=== PATIENT | male | born 1965 | race Caucasian/White ===

== ENCOUNTER 2018-09-01 15:02 | Inpatient (IN) | payer OTHER ==
[~2018-09-01] VITALS: Ht 185.4 cm; Wt 85.7 kg
--- NOTE | 2018-09-01 15:04 | NUR ---
PT BIBA ALS TO BED 4
[2018-09-01 15:05] VITALS: BP 112/69
--- NOTE | 2018-09-01 15:11 | NUR ---
Patient being evaluated by physician at bedside.
--- NOTE | 2018-09-01 15:15 | NUR ---
XRAY AT BEDSIDE
--- NOTE | 2018-09-01 15:23 | NUR ---
PT DENIES SOB,DENIES VOMITING/NAUSEA. BS FIELD 331,EKG FIELD RT. BUNDLE,ASA 324 MG.PO GIVEN FIELD, NTG X2 GIVEN FIELD. CHEST PAIN NON RADIATING, NON PROVOKED.PATIENT IN [facility] DURING THE EPISODE. HX: 4 STENTS,HEART ATTACK,HTN,DM,LEFT BKA, RT. TOE AMPUTATION,RT. EYE BLIND. PATIENT STATES PAIN OF 8/10 AT THIS TIME; VSS; PATIENT POSITIONED FOR COMFORT; HOB ELEVATED; BEDRAILS UP X2; BED DOWN. ER MD MADE AWARE OF PT STATUS.
[2018-09-01 15:37] LABS: BASOPHILS % (AUTO) 0.3 % (0.0-2.0); EOSINOPHILS % (AUTO) 0.1 % (0.0-4.0); HEMATOCRIT 31.1 % (36-52); HEMOGLOBIN 9.8 g/dL (12.0-18.0); LYMPHOCYTES # (AUTO) 1.3 K/uL (2.0-11.5); LYMPHOCYTES % (AUTO) 13.1 % (20.5-51.1); MEAN CORPUSCULAR HEMOGLOBIN 24 pg (27-31); MEAN CORPUSCULAR HGB CONC 32 g/dL (33-37); MEAN CORPUSCULAR VOLUME 75.1 fL (80-94); MONOCYTES % (AUTO) 9.9 % (1.7-9.3); NEUTROPHILS # (AUTO) 7.6 K/uL (1.8-7.7); NEUTROPHILS % (AUTO) 76.6 % (42.2-75.2); PLATELET COUNT (AUTO) 270 K/uL (140-450); RED BLOOD CELL COUNT(AUTO) 4.14 MIL/uL (4.20-6.10); RED CELL DISTRIBUTION WIDTH 20.7 % (11.6-13.7); WHITE BLOOD COUNT (AUTO) 9.9 K/uL (4.8-10.8)
[2018-09-01 15:49] LABS: ANION GAP 6.7 (8-16); CARBON DIOXIDE 28.9 mmol/L (21-32); POTASSIUM 3.6 mmol/L (3.5-5.1)
[2018-09-01 15:55] LABS: ALBUMIN 2.8 g/dL (3.4-5.0); TOTAL BILIRUBIN 0.5 mg/dL (0.0-1.0)
[2018-09-01 15:57] LABS: PROTHROMBIN TIME 12.4 secs (10.8-13.4)
[2018-09-01] MEDS ORDERED: HYDROcodone/APAP 5/325 MG 1 TAB TAB PO PRN ×2 (16:55)
[2018-09-01] MEDS ORDERED: ONDANSETRON 4 MG/2 ML VIAL IVP PRN (16:55)
[2018-09-01] MEDS ORDERED: ACETAMINOPHEN 325 MG TAB PO PRN (16:55)
--- NOTE | 2018-09-01 17:25 | NUR ---
ENDORSED PT. TO CIGARETTE AND FILTER CHIEF INSPECTOR FOR CONTINUITY OF CARE. PATIENT IN STABLE CONDITION. ALL NEEDS MET AT THIS TIME.
--- NOTE | 2018-09-01 17:31 | NUR ---
PT TAKEN TO FLOOR BY SHAE SHELLEY AND EMT GISELA
--- NOTE | 2018-09-01 17:40 | NUR ---
Patient will be admitted to care of DR. ALMANZA. Admited to TELE. Will go to room 111A. Belongings list completed. Report to SHAE THORNTON.
--- NOTE | 2018-09-01 17:45 | NUR ---
53 y/o ,Male Admitted from ED with chief complaint of CHEST PAIN. PT IS AAOX3 TO PERSON, PLACE, AND DAY. Cooperative AND VERBALIZES PAST MEDICAL HX. PT STATES CHEST PAIN OF 8/10 AND IS PRESENT AND NOTIFIED. PT. HAS LEFT BUTTOCK SORE [id number]. BELONGINGS OF PT INCLUDE WHEELCHAIR, CLOTHES, MONEY LEFT ON HIS PERSON. PT oriented to call light, bed, phone,television, bathroom, smoking policy, visiting hours, procedures, ID bracelet on. Belongings list checked. PT VERBALIZED UNDERSTANDING.
[2018-09-01 17:47] VITALS: BP 114/58
--- NOTE | 2018-09-01 17:50 | NUR ---
MRSA NARES SWABS COLLECTED AND SENT TO LAB.
--- NOTE | 2018-09-01 18:00 | NUR ---
PT GIVEN HOMELESS PACKET WAIVER AND INFO PACKET. HE SIGNED AND VERBALIZED UNDERSTANDING.
[2018-09-01] MEDS ORDERED: NITROGLYCERIN 2% 1 GM PKT TP SCH (18:10)
[2018-09-01] MEDS ORDERED: CLOPIDOGREL 75 MG TAB PO SCH (18:17)
[2018-09-01] MEDS ORDERED: amLODIPine 5 MG TAB PO SCH (18:18)
--- NOTE | 2018-09-01 18:30 | NUR ---
ECHO CARDIOGRAM ON GOING AT THE BEDSIDE.
--- NOTE | 2018-09-01 19:48 | NUR ---
NOTIFIED CHARGE NURSE SHAE TALAMANTES ON PATIENT STATING THAT HE HAS SUICIDAL IDEATION DUE TO PERSONAL ISSUES.
--- NOTE | 2018-09-01 19:48 | NUR ---
RECEIVED REPORT FROM DAY SHIFT NURSE ADRIAN-RN AT BEDSIDE. PT SLEEPING IN BED, ACCORDING TO DAY SHIFT NURSE PT IS AOX3, RIGHT SIDED WEAKNESS, WITH IV SITE ON LEFT WRIST #[id number]. LEFT BKA AND RIGHT TOES AMPUTATED NOTED. LEFT BUTTOCK SORE [id number] NOTED, SENIOR DATA WAREHOUSE DEVELOPER. NO S/S OF RESPIRATORY DISTRESS OR DISCOMFORT NOTED AT THIS TIME. BED IN LOWEST POSITION, BED BREAKS ON, BOTH SIDE RAILS UP, BED ALARM ON. BEDSIDE TABLE AND CALL LIGHT ARE WITHIN REACH. WILL CONTINUE TO MONITOR.
[2018-09-01 20:00] VITALS: BP 114/63
--- NOTE | 2018-09-01 20:00 | NUR ---
VITAL SIGNS TAKEN AND TOLERATED WELL. NO S/S OF RESPIRATORY DISTRESS OR DISCOMFORT NOTED AT THIS TIME. WILL CONTINUE TO MONITOR.
--- NOTE | 2018-09-01 20:50 | NUR ---
NEFTALI MALHOTRA RTAcostaCAME TO ME AND REPORTED THAT WHEN HE DID ECHO ON PT HE TALKED ABOUT HAVING SUICIDAL IDEATION.INFORMED MELISSA KAUFMAN PT'S NURSE.THEN CAME AND I INFORMED HIM ABOUT PT'S SUICIDAL IDEATION ALSO.
--- NOTE | 2018-09-01 20:51 | NUR ---
SCHEDULED MEDICATION GIVEN AND TOLERATED WELL. NO S/S OF RESPIRATORY DISTRESS OR DISCOMFORT NOTED AT THIS TIME. WILL CONTINUE TO MONITOR.
[2018-09-01] MEDS ORDERED: LOVENOX 1MG/KG Q12H SUBQ SCH (21:00)
[2018-09-01] MEDS ORDERED: ENOXAPARIN 80 MG/0.8 ML SYR SUBQ SCH (21:00)
[2018-09-01] MEDS ORDERED: DEXTROSE 50% 50 ML SYR IVP PRN (22:40)
[2018-09-01] MEDS ORDERED: INSULIN LISPRO SLIDING SCALE 100 UNITS/ML VIAL SUBQ PRN (22:40)
--- NOTE | 2018-09-01 22:50 | NUR ---
SPOKE WITH DR. ALMANZA PT HX: DM TYPE 2 - ORDERED ACCUCHECKS, INSULIN SLIDING SCALE, PSYCH AND SECURITY ALARM INSTALLER CONSULTS. BLOOD GLUCOSE 206- ONE DOSE OF 4UNITS ORDERED AND WILL BE GIVEN.
[2018-09-01] MEDS ORDERED: INSULIN LISPRO 100 UNITS/ML VIAL SUBQ SCH (23:00)
--- NOTE | 2018-09-01 23:01 | NUR ---
BLOOD GLUCOSE 206- INSULIN COVERAGE GIVEN AND TOLERATED WELL. NO S/S OF RESPIRATORY DISTRESS OR DISCOMFORT NOTED AT THIS TIME. WILL CONTINUE TO MONITOR.
[2018-09-02] VITALS: BP 121/63
--- NOTE | 2018-09-02 | NUR ---
VITAL SIGNS TAKEN AND TOLERATED WELL. NO S/S OF RESPIRATORY DISTRESS OR DISCOMFORT NOTED AT THIS TIME. WILL CONTINUE TO MONITOR.
[2018-09-02] MEDS: NITROGLYCERIN 2% 1 GM PKT TP SCH ×2 (00:12→05:25)
--- NOTE | 2018-09-02 00:12 | NUR ---
SCHEDULED MEDICATION GIVEN AND TOLERATED WELL. NO S/S OF RESPIRATORY DISTRESS OR DISCOMFORT NOTED AT THIS TIME. WILL CONTINUE TO MONITOR.
[2018-09-02] MEDS ORDERED: INFLUENZA VIRUS VACCINE QUAD 0.5 ML SYR IMVAC PRN (01:55)
--- NOTE | 2018-09-02 02:00 | NUR ---
PT CONTINUES TO SLEEP IN BED. NO S/S OF RESPIRATORY DISTRESS OR DISCOMFORT NOTED AT THIS TIME. WILL CONTINUE TO MONITOR.
[2018-09-02 04:00] VITALS: BP 118/72
--- NOTE | 2018-09-02 04:00 | NUR ---
VITAL SIGNS TAKEN AND TOLERATED WELL. NO S/S OF RESPIRATORY DISTRESS OR DISCOMFORT NOTED AT THIS TIME. WILL CONTINUE TO MONITOR.
--- NOTE | 2018-09-02 05:25 | NUR ---
SCHEDULED MEDICATION GIVEN AND TOLERATED WELL. NO S/S OF RESPIRATORY DISTRESS OR DISCOMFORT NOTED AT THIS TIME. WILL CONTINUE TO MONITOR.
[2018-09-02 06:51] LABS: ANION GAP 9.4 (8-16); CREATININE 0.7 mg/dL (0.7-1.3); POTASSIUM 3.4 mmol/L (3.5-5.1)
--- NOTE | 2018-09-02 07:29 | NUR ---
ENDORSED PT CARE TO DAY SHIFT NURSE BENOIT FOR CONTINUITY OF CARE.
[2018-09-02] MEDS ORDERED: BLOOD GLUCOSE MONITORING 1 DEV DEV FS SCH ×2 (07:30)
[2018-09-02 07:33] LABS: BASOPHILS % (AUTO) 0.4 % (0.0-2.0); EOSINOPHILS % (AUTO) 0.1 % (0.0-4.0); HEMATOCRIT 30.4 % (36-52); HEMOGLOBIN 9.7 g/dL (12.0-18.0); LYMPHOCYTES # (AUTO) 1.7 K/uL (2.0-11.5); LYMPHOCYTES % (AUTO) 19.5 % (20.5-51.1); MEAN CORPUSCULAR HEMOGLOBIN 24 pg (27-31); MEAN CORPUSCULAR HGB CONC 32 g/dL (33-37); MEAN CORPUSCULAR VOLUME 74.8 fL (80-94); MONOCYTES # (AUTO) 0.8 K/uL (0.8-1.0); MONOCYTES % (AUTO) 8.9 % (1.7-9.3); NEUTROPHILS # (AUTO) 6.3 K/uL (1.8-7.7); NEUTROPHILS % (AUTO) 71.1 % (42.2-75.2); PLATELET COUNT (AUTO) 252 K/uL (140-450); RED BLOOD CELL COUNT(AUTO) 4.06 MIL/uL (4.20-6.10); RED CELL DISTRIBUTION WIDTH 21.3 % (11.6-13.7); WHITE BLOOD COUNT (AUTO) 8.8 K/uL (4.8-10.8)
--- NOTE | 2018-09-02 07:34 | NUR ---
RECEIVED REPORT FORM PRICING MANAGER. PATIENT WAS ASLEEP. RESPIRATIONS EVEN AND UNLABORED ON ROOM AIR. SKIN DRY AND WARM. IV PATENT AND INTACT. NO SIGNS OF PAIN. BED AT LOW POSITION, SIDE RAILS UP. CALL LIGHT WITHIN REACH.
[2018-09-02 07:55] LABS: ALBUMIN 2.5 g/dL (3.4-5.0); ANION GAP 9.7 (8-16); CARBON DIOXIDE 27.7 mmol/L (21-32); CREATININE 0.7 mg/dL (0.7-1.3); POTASSIUM 3.4 mmol/L (3.5-5.1); TOTAL BILIRUBIN 0.4 mg/dL (0.0-1.0)
[2018-09-02 08:00] VITALS: BP 98/65
--- NOTE | 2018-09-02 08:38 | NUR ---
PATIENT HAS BEEN SCREENED AND CATEGORIZED HIGH NUTRITION RISK. PATIENT WILL BE SEEN WITHIN 1-2 DAYS OF ADMISSION. 09/02/18-09/03/[address]
[2018-09-02] MEDS ORDERED: ENOXAPARIN 30 MG/0.3 ML SYR SUBQ SCH (09:00)
[2018-09-02] MEDS ORDERED: CLOPIDOGREL 75 MG TAB PO SCH (09:00)
[2018-09-02] MEDS ORDERED: ASPIRIN 81 MG TAB.CHEW PO SCH (09:00)
--- NOTE | 2018-09-02 09:12 | NUR ---
WOUND CARE EVALUATION NOTE: REASON FOR EVALUATION: LEFT BUTTOCK WOUND SKIN ASSESSMENT DONE WITH THIS 53 Y/O MALE PT ADMITTED TO [facility] WITH INITIAL DX CHEST PAIN. PAST MEDICAL HX INCLUDES HTN, DM AND NEUROPATHY. ALL ABOVE INFORMATION OBTAINED FROM ADMISSION H&P. LABS ARE WBC 8.8, H/H 9.7/30.4, GLUCOSE 125 AND ALBUMIN 2.8. PT IS AWAKE. SKIN IS WARM AND DRY, BLE HAIR GROWTH, NO EDEMA. HX OF LEFT BKA AND RIGHT FOOT ALL TOES AMPUTATION. PT. ABLE TO TURN AND REPOSITION BY HIMSELF, PT STATE THAT HE HASN'T HAS CHANCE TO WOMEN SPECIALIST A W/C CUSHION THAT IS WHY THE LEFT BUTTOCK GOT OPEN. PT. IS CONTINENT OF BOWEL AND BLADDER. PLAN OF CARE AND PRESSURE INJURY PREVENTION INTERVENTIONS DISCUSSED PT. PT VERBALIZES UNDERSTANDING INTEGUMENTARY: -MULTIPLE HEALED OLD SCARS TO LEFT STUMP AND RIGHT FOOT -LEFT ISCHIUM STAGE 2 PRESSURE INJURY, 1X1CM WOUND BED PALE PINK, MOIST, NEHA-WOUND SKIN INTACT WITH ERYTHEMA,WARM TO TOUCH -DIABETIC ULCER RIGHT LATERAL FOOT PLANTAR ASPECT 3X3 CM UN-STAGEABLE BLACK ESCHAR TISSUE, NEHA-WOUND SKIN INTACT WITH THICK CIRCULAR CALLUS RECOMMENDATIONS: -PODIATRY CONSULT -APPLY HYDRAGUARD TO LEFT STUMP BID AND LEAVE IT OPEN TO AIR -CLEANSE LEFT ISCHIUM WITH NS AND APPLY SILVASORB GEL COVER WITH DRY DRESSING QD AND PRN IF SOILING -PAINT RIGHT LATERAL FOOT PLANTAR ASPECT WOUND WITH BETADINE SOLUTION BID AND LEAVE IT OPEN TO AIR -OFFLOAD BILATERAL LE BY PLACING PILLOWS UNDER CALVES UNLESS OTHERWISE CONTRAINDICATED -PRESSURE REDISTRIBUTION SURFACE THERAPY -TURN AND REPOSITION Q2H, OFFLOAD SACRALCOCCYX AND BUTTOCKS BY TURNING RIGHT AND LEFT -CONTINUE TO FOLLOW RD RECOMMENDATIONS ALL ABOVE RECOMMENDATIONS DISCUSSED WITH PRIMARY RN. PLEASE CONTACT WOUND CARE NURSE FOR ANY QUESTION AND CHANGE OF WOUND CONDITION.
--- NOTE | 2018-09-02 09:38 | NUR ---
RECEIVED CALL FROM OSCAR, SELENIUM PLANT OPERATOR. SHE REVIEWED PT. WOUND FINDINGS. LEFT BUTTOCK STAGE 2 WITH WARMTH PRESENT. SHE DRESSED THE WOUND WITH SILVER SOAP ABX DRESSING. RIGHT FOOT UNDER PINKY TOE UNSTAGEABLE [id number] WOUND. SHE RECOMMENDED BEDADINE SOLUTION AND AIR DRY FOR THAT WOUND. OSCAR RECOMMENDED PEDIATRIST CONSULT FOR THIS WOUND. WILL FOLLOW-UP WITH DR. ALMANZA FOR THESE FINDINGS.
--- NOTE | 2018-09-02 09:46 | NUR ---
DR. ALMANZA AT [facility]. I FOLLOWED-UP WITH HIM ABOUT WOUND CARE FINDINGS INCLUDING OSCAR'S, WOUND RN, RECOMMENDATION FOR PEDIATRIST CONSULT. PER DR. ALMANZA, PATIENT CAN HAVE PEDIATRIST CONSULT OUTPATIENT ONCE DISCHARGED.
--- NOTE | 2018-09-02 10:00 | NUR ---
PSYCHIATRIST CAME AND EVALUATED PT. PT. NOT SUICIDAL PER PSYCHIATRIST. STATED THAT HE WILL UPDATE PROGRESS NOTES.
[2018-09-02] MEDS ORDERED: ENOXAPARIN 40 MG/0.4 ML SYR SUBQ SCH (10:17)
--- NOTE | 2018-09-02 11:25 | NUR ---
PT STATED HE WANTS TO LEAVE AMA TO GO SEE FAMILY IN [place]. PATIENT WAS GIVEN INFORMATION OF THE RISKS AND POSSIBLE CONSEQUENCES OF LEAVING AMA. PATIENT VERBALIZED UNDERSTANDING OF THIS TEACHING.
--- NOTE | 2018-09-02 11:26 | NUR ---
PT OFFERED FLU VACCINE BUT REFUSED. RISK AND BENEFITS EXPLAINED. VERBALIZED UNDERSTANDING.
--- NOTE | 2018-09-02 11:30 | NUR ---
PATIENT SIGNED AMA FORM. NO COMPLAINTS OF PAIN AT THIS TIME.
--- NOTE | 2018-09-02 11:36 | NUR ---
PT IV DC'D WITH TIP INTACT. SECURITY AND CHARGE NURSE NOTIFIED OF THE AMA. PATIENT WRIST BANDS REMOVED. PT BELONGINGS PLACED IN WHEELCHAIR. HELPED PT. TRANSFER INTO WHEELCHAIR AND PROVIDED HIM WITH A COPY OF FOLLOW-UP APPT. INSTRUCTIONS IN [place] WITH PCP. PATIENT VERBALIZED UNDERSTANDING. PATIENT LEFT IN STABLE CONDITION ACCOMPANIED BY DRAWING HAND TO PARKING LOT.
--- NOTE | 2018-09-02 11:40 | NUR ---
CALLED TO NOTIFY HIM OF PATIENT LEAVING AMA. LEFT MESSAGE WITH EXCHANGE.
[2018-09-02] MEDS ORDERED: amLODIPine 5 MG TAB PO SCH (12:00)
--- NOTE | 2018-09-02 12:30 | NUR ---
*LATE ENTRY FOR 10:00 AM CM NOTE PER DON OF PATIENT'S PCP DR[facility] PH# [phone], PATIENT IS SCHEDULED FOR OUTPATIENT FF UP APPOINTMENT ON SEPTEMBER 08 2018 3:45 PM AT THE CLINIC [place] [address] [place] [address] ADRIAN KAUFMAN AWARE
[2018-09-02 12:38] LABS: BARBITURATE, URINE NEG. ng/ml (NEG <=200); BENZODIAZEPINE, URINE NEG. ng/mL (NEG <=200); CANNABINOID, URINE NEG. ng/mL (NEG <=50); COCAINE, URINE NEG. ng/mL (NEG <=300); OPIATE, URINE NEG. ng/mL (NEG <=2000); PHENCYCLIDINE SCREEN,URINE NEG. ng/mL (NEG <=25)
[2018-09-02] MEDS ORDERED: GAUZE TP SCH ×2 (13:00)
[2018-09-02] MEDS ORDERED: HYDRAGUARD CREAM TP SCH (13:00)
--- NOTE | 2018-09-02 13:30 | NUR ---
ADRIAN RN SPOKE WITH REGARDING PT LEAVING AMA.
[2018-09-03] MEDS ORDERED: ENOXAPARIN 40 MG/0.4 ML SYR SUBQ SCH (09:00)
== END 2018-09-02 11:36 | disposition left against medical advice (07) | DRG 198 ==
LOC: MED 15:02 → MTU 17:00
PROVIDERS: ADMIT Hospitalist; ATTEND Hospitalist
DX: I24.9 Acute ischemic heart disease, unspecified (principal); L89.152 Pressure ulcer of sacral region, stage 2; E11.40 Type 2 diabetes mellitus with diabetic neuropathy, unspecified; E11.51 Type 2 diabetes mellitus with diabetic peripheral angiopathy without gangrene; R45.851 Suicidal ideations; E11.65 Type 2 diabetes mellitus with hyperglycemia; I25.10 Atherosclerotic heart disease of native coronary artery without angina pectoris; I45.10 Unspecified right bundle-branch block; Z53.21 Procedure and treatment not carried out due to patient leaving prior to being seen by health care provider; Z95.5 Presence of coronary angioplasty implant and graft; Z88.1 Allergy status to other antibiotic agents; Z89.511 Acquired absence of right leg below knee; Z89.422 Acquired absence of other left toe(s); Z59.0 Homelessness
CPT/HCPCS: 36415; 71045; 80048; 80053; 80305; 82306; 82550; 82948; 83036; 83880; 84443; 84484; 84550; 85025; 85379; 85610; 85730; 86886; 86900; 86901; 87081; 93005; 93971; 99285; J1650; J1815; Q0092